=== PATIENT | female | born 1985 | race African-American/Black ===

== ENCOUNTER 2020-06-04 18:39 | Emergency (ER) | payer MEDICAID ==
[~2020-06-04] VITALS: Ht 165.1 cm; Wt 84.8 kg
[~2020-06-04 18:39] MED LIST: VICODIN 5-5001 EACH PO
[2020-06-04 18:53] VITALS: BP 116/76
[2020-06-04] MEDS ORDERED: IBUPROFEN400 MG ORAL (19:26)
[2020-06-04] MEDS ORDERED: ACETAMINOPHEN500 M3 ORAL (19:26)
[2020-06-04] MEDS ORDERED: Ketorolac 60mg Inj IM ONE (19:30)
[2020-06-04] MEDS ORDERED: NORCO 5-325 TA1 EAC1 ORAL (19:32)
--- NOTE | 2020-06-04 19:48 | Diagnostic Imaging Report ---
EXAM: XR Right Knee, 3 Views CLINICAL HISTORY: PAIN TECHNIQUE: Three views of the right knee. COMPARISON: No relevant prior studies available. FINDINGS: Bones/joints: Ossific body measuring 12 x 5 mm projecting just to the peripheral aspect of the lateral tibial plateau. Could be from an old injury. No acute or healing fracture or malalignment. No significant joint effusion. Soft tissues: Unremarkable. IMPRESSION: No acute or healing fracture or malalignment.
[2020-06-04 19:55] VITALS: BP 116/76
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
== END 2020-06-04 19:55 | disposition home or self-care (01) ==
LOC: EMR 19:14
DX: S80.01XA Contusion of right knee, initial encounter (principal); T14.8XXA Other injury of unspecified body region, initial encounter; W05.1XXA Fall from non-moving nonmotorized scooter, initial encounter; Y92.9 Unspecified place or not applicable
CPT/HCPCS: 73564; 96372; Z7502; 99283